=== PATIENT | female | born 1990 | race Two or more races ===

== ENCOUNTER 2017-04-29 05:11 | Inpatient (IN) | payer BC, SELFPAY ==
[2017-04-29] MEDS ORDERED: Sodium Chloride 0.9% 10 ML Syringe FLUSH PRN (06:00)
[2017-04-29] MEDS ORDERED: Lidocaine 1% 50 ML MDV INJECT PRN (06:00)
[2017-04-29] MEDS ORDERED: Sodium Chloride 0.9% 2.5 ML Syringe FLUSH PRN (06:00)
[2017-04-29] MEDS ORDERED: Methylergonovine 0.2 MG/1 ML Amp IM PRN (06:00)
[2017-04-29] MEDS ORDERED: Nalbuphine 10 MG/1 ML Vial IVPUSH PRN (06:00)
[2017-04-29] MEDS ORDERED: Carboprost Tromethamine 250 MCG/1 ML Amp IM PRN (06:00)
[2017-04-29] MEDS ORDERED: Oxytocin/0.9 % Sodium Chloride 30 UNIT/500 ML BAG IV SCH ×2 (06:00→12:15)
[2017-04-29] MEDS ORDERED: Water For Irrigation,Sterile 1,000 ML Container IRR PRN (06:00)
[2017-04-29] MEDS ORDERED: Misoprostol 200 MCG Tab PO PRN (06:00)
[2017-04-29] MEDS ORDERED: Butorphanol 1 MG/ML SDV IVPUSH PRN (06:00)
[2017-04-29] MEDS: Lactated Ringers 1,000 ML IV SCH ×3 (06:35→07:50)
[2017-04-29] MEDS ORDERED: Ropivacaine HCl/PF 100 ML ONE (07:15)
[2017-04-29] MEDS ORDERED: fentaNYL 100 MCG/2 ML SDV ONE (07:15)
--- NOTE | 2017-04-29 07:23 | PCM.LDHP ---
L&D History of Present Illness - General Date of Service: 04/29/17 Admit Problem/Dx: Patient Status Order with Admit Dx/Problem 04/29/17 06:00 Patient Status [ADT] Routine Admission Diagnosis/Problem Admission Diagnosis/Problem 04/29/17 07:21 26yo EDC at 38 1/7wks. Comes to L&D with ROM clear and contractions. O+, RI, GBS neg. Source of Information: Patient History Limitations: Reports: No Limitations - History of Present Illness Improves with: Reports: None Worsens with: Reports: None Associated Symptoms: Reports: N - Related Data Allergies/Adverse Reactions: Allergies Allergy/AdvReac Type Severity Reaction Status Date / Time No Known Allergies Allergy Verified 04/29/17 06:00 H&P Review of Systems - Review of Systems: Review Of Systems: See Below General: Reports: No Symptoms HEENT: Reports: No Symptoms Pulmonary: Reports: No Symptoms Cardiovascular: Reports: No Symptoms Gastrointestinal: Reports: No Symptoms Genitourinary: Reports: No Symptoms Musculoskeletal: Reports: No Symptoms Skin: Reports: No Symptoms Psychiatric: Reports: No Symptoms Neurological: Reports: No Symptoms Hematologic/Lymphatic: Reports: No Symptoms Immunologic: Reports: No Symptoms L&D Exam - Exam Exam: See Below - Vital Signs Weight: 103.419 kg - OB Specific Contraction Intensity: Moderate to Strong Movement: Active Heart Tones: Present Heart Tones per Min: 120 Heart Rate (FHR) Variability: Moderate (6-25 bmp) Presentation: Vertex - Patel Score Patel Score Cervix Position: Anterior Patel Score Consistency: Soft Patel Score Effacement: >80% Patel Score Dilation: 3-4 cm Patel Score Infant's Station: -2 Patel Score Total: 10 - Exam General: Alert, Oriented, Cooperative Lungs: Clear to Auscultation, Normal Respiratory Effort Cardiovascular: Regular Rate, Regular Rhythm GI/Abdominal Exam: Soft, Non-Tender Rectal Exam: Deferred Genitourinary: Normal external exam, Cervical dilitation, Cervical fluid Back Exam: Full Range of Motion Extremities: Normal Range of Motion, Non-Tender, No Pedal Edema, Normal Capillary Refill Skin: Warm, Dry, Intact Neurological: Reflexes Equal Bilateral, Normal Speech, Normal Tone Psychiatric: Alert, Normal Affect, Normal Mood - Patient Data Lab Results Last 24 hrs: Laboratory Results - last 24 hr 12/01/17 Range/Units 06:29 WBC 11.41 H (4.0-11.0) K/uL RBC 4.63 (4.30-5.90) M/uL Hgb 13.0 (12.0-16.0) g/dL Hct 39.1 (36.0-46.0) % MCV 84.4 (80.0-98.0) fL MCH 28.1 (27.0-32.0) pg MCHC 33.2 (31.0-37.0) g/dL RDW Std Deviation 42.1 (28.0-62.0) fl RDW Coeff of Tania 14 (11.0-15.0) % Plt Count 237 (150-400) K/uL MPV 10.90 (7.40-12.00) fL Nucleated RBC % 0.0 /100WBC Nucleated RBCs # 0 K/uL Result Diagrams: 04/29/17 06:29 - Problem List (1) Supervision of normal IUP (intrauterine ) in multigravida SNOMED Code(s): 311802792, 979905457 ICD Code: Z34.80 - ENCOUNTER FOR SUPRVSN OF NORMAL , UNSP TRIMESTER Status: Acute Current Visit: Yes Qualifiers: Trimester: third trimester Qualified Code(s): Z34.83 - Encounter for supervision of other normal , third trimester Problem List Initiated/Reviewed/Updated: Yes Orders Last 24hrs: Active Orders 24 hr Category Date Time Status Patient Status [ADT] Routine ADT 04/29/17 06:00 Active Heart Tones [RC] CONTINUOUS Care 04/29/17 06:00 Active Non Stress Test [RC] PER UNIT ROUTINE Care 04/29/17 06:00 Active May Shower [RC] ASDIRECTED Care 04/29/17 06:00 Active Notify Provider [RC] PRN Care 04/29/17 06:00 Active Up ad Shanon [RC] ASDIRECTED Care 04/29/17 06:00 Active Vaginal Exam [RC] PRN Care 04/29/17 06:00 Active Vital Signs [RC] PER UNIT ROUTINE Care 04/29/17 06:00 Active TYPE AND SCREEN [BBK] Routine Lab 04/29/17 06:29 Received Butorphanol [Stadol] Med 04/29/17 06:00 Active 1 mg IVPUSH Q1H PRN Carboprost Tromethamine [Hemabate DS] Med 04/29/17 06:00 Active 250 mcg IM ASDIRECTED PRN Lactated Ringers [Ringers, Lactated] 1,000 ml Med 04/29/17 06:00 Active IV ASDIRECTED Lidocaine 1% [Xylocaine 1%] Med 04/29/17 06:00 Active 50 ml INJECT .ONCE PRN Methylergonovine [Methergine] Med 04/29/17 06:00 Active 0.2 mg IM ASDIRECTED PRN Misoprostol [Cytotec] Med 04/29/17 06:00 Active 200 mcg PO .ONCE PRN Nalbuphine [Nubain] Med 04/29/17 06:00 Active 10 mg IVPUSH Q1H PRN Oxytocin/0.9 % Sodium Chloride [Oxytocin 30 Unit/500 ML Med 04/29/17 06:00 Active -NS] 30 unit in 500 ml IV TITRATE Sodium Chloride 0.9% [Saline Flush] Med 04/29/17 06:00 Active 10 ml FLUSH ASDIRECTED PRN Sodium Chloride 0.9% [Saline Flush] Med 04/29/17 06:00 Active 2.5 ml FLUSH ASDIRECTED PRN Water For Irrigation,Sterile [Sterile Water for Med 04/29/17 06:00 Active Irrigation] 1,000 ml IRR ASDIRECTED PRN Scalp Electrode [WOMSER] Per Unit Routine Oth 04/29/17 06:00 Ordered Peripheral IV Insertion Adult [OM.PC] Routine Oth 04/29/17 06:00 Ordered Resuscitation Status Routine Resus Stat 04/29/17 06:00 Ordered Medication Orders Butorphanol Tartrate (Stadol) 1 mg IVPUSH Q1H PRN PRN Reason: Pain Carboprost Tromethamine (Hemabate Ds) 250 mcg IM ASDIRECTED PRN PRN Reason: Post Hemorrhage Lactated Ringer's (Ringers, Lactated) 1,000 mls @ 150 mls/hr IV ASDIRECTED KENDELL Last Admin: 04/29/17 07:11 Dose: 999 mls/hr Infusion: 04/29/17 07:11 Dose: 150 mls/hr Admin: 04/29/17 06:35 Dose: 150 mls/hr Oxytocin/Sodium Chloride (Oxytocin 30 Unit/500 Ml-Ns) 30 unit in 500 mls @ 999 mls/hr IV TITRATE KENDELL Lidocaine HCl (Xylocaine 1%) 50 ml INJECT .ONCE PRN PRN Reason: Laceration repair Methylergonovine Maleate (Methergine) 0.2 mg IM ASDIRECTED PRN PRN Reason: Post Hemorrhage Misoprostol (Cytotec) 200 mcg PO .ONCE PRN PRN Reason: Post Hemorrhage Nalbuphine HCl (Nubain) 10 mg IVPUSH Q1H PRN PRN Reason: Pain (severe 7-10) Sodium Chloride (Saline Flush) 10 ml FLUSH ASDIRECTED PRN PRN Reason: Keep Vein Open Sodium Chloride (Saline Flush) 2.5 ml FLUSH ASDIRECTED PRN PRN Reason: Keep Vein Open Sterile Water (Sterile Water For Irrigation) 1,000 ml IRR ASDIRECTED PRN PRN Reason: delivery Assessment/Plan Comment:: Labor A: 26yo EDC 12 at 38 1/7wks. Comes to L&D with ROM clear and contractions. O+, RI, GBS neg. P: Admit to L&D, epidrual prn, anticipate . Dr Alexis updated on pt status.
--- NOTE | 2017-04-29 07:55 | PCM.PREANE ---
Preanesthetic Assessment - Anesthesia/Transfusion/Family Hx Anesthesia History: Prior Anesthesia Without Reaction Family History of Anesthesia Reaction: No Intubation History: Unknown - Review of Systems General: No Symptoms Pulmonary: No Symptoms Cardiovascular: No Symptoms Gastrointestinal: No Symptoms Neurological: No Symptoms Other: Reports: None - Physical Assessment NPO Status Date: 04/29/17 NPO Status Time: 07:54 Blood Pressure: 129/82 Height: 5 ft 6 in Weight: 228 lb ASA Class: 2 Mental Status: Alert & Oriented x3 Airway Class: Mallampati = 2 Dentition: Reports: Normal Dentition Thyro-Mental Finger Breadths: 3 Mouth Opening Finger Breadths: 3 ROM/Head Extension: Full Lungs: Clear to Auscultation, Normal Respiratory Effort Cardiovascular: Regular Rate, Regular Rhythm - Lab Values: Laboratory Last Values WBC 11.41 K/uL (4.0-11.0) H 04/29/17 06:29 RBC 4.63 M/uL (4.30-5.90) 04/29/17 06:29 Hgb 13.0 g/dL (12.0-16.0) 04/29/17 06:29 Hct 39.1 % (36.0-46.0) 04/29/17 06:29 MCV 84.4 fL (80.0-98.0) 04/29/17 06:29 MCH 28.1 pg (27.0-32.0) 04/29/17 06:29 MCHC 33.2 g/dL (31.0-37.0) 04/29/17 06:29 RDW Std Deviation 42.1 fl (28.0-62.0) 04/29/17 06:29 RDW Coeff of Tania 14 % (11.0-15.0) 04/29/17 06:29 Plt Count 237 K/uL (150-400) 04/29/17 06:29 MPV 10.90 fL (7.40-12.00) 04/29/17 06:29 Nucleated RBC % 0.0 /100WBC 04/29/17 06:29 Nucleated RBCs # 0 K/uL 04/29/17 06:29 Blood Type O POSITIVE 04/29/17 06:29 Antibody Screen NEGATIVE 04/29/17 06:29 - Allergies Allergies/Adverse Reactions: Allergies Allergy/AdvReac Type Severity Reaction Status Date / Time No Known Allergies Allergy Verified 04/29/17 06:00 - Blood Blood Available: No Product(s) Available: None - Acknowledgements Anesthesia Type Planned: Epidural Pt an Appropriate Candidate for the Planned Anesthesia: Yes Alternatives and Risks of Anesthesia Discussed w Pt/Guardian: Yes Pt/Guardian Understands and Agrees with Anesthesia Plan: Yes PreAnesthesia Questionnaire Endocrine/Metabolic History: Reports: Obesity/BMI 30+ - CURRENT (IN HOUSE) MEDS Current Meds: Current Medications Butorphanol Tartrate (Stadol) 1 mg IVPUSH Q1H PRN PRN Reason: Pain Carboprost Tromethamine (Hemabate Ds) 250 mcg IM ASDIRECTED PRN PRN Reason: Post Hemorrhage Lactated Ringer's (Ringers, Lactated) 1,000 mls @ 150 mls/hr IV ASDIRECTED KENDELL Last Admin: 04/29/17 07:50 Dose: 150 mls/hr Oxytocin/Sodium Chloride (Oxytocin 30 Unit/500 Ml-Ns) 30 unit in 500 mls @ 999 mls/hr IV TITRATE [facility] Lidocaine HCl (Xylocaine 1%) 50 ml INJECT .ONCE PRN PRN Reason: Laceration repair Methylergonovine Maleate (Methergine) 0.2 mg IM ASDIRECTED PRN PRN Reason: Post Hemorrhage Misoprostol (Cytotec) 200 mcg PO .ONCE PRN PRN Reason: Post Hemorrhage Nalbuphine HCl (Nubain) 10 mg IVPUSH Q1H PRN PRN Reason: Pain (severe 7-10) Sodium Chloride (Saline Flush) 10 ml FLUSH ASDIRECTED PRN PRN Reason: Keep Vein Open Sodium Chloride (Saline Flush) 2.5 ml FLUSH ASDIRECTED PRN PRN Reason: Keep Vein Open Sterile Water (Sterile Water For Irrigation) 1,000 ml IRR ASDIRECTED PRN PRN Reason: delivery Discontinued Medications Fentanyl (Sublimaze) Confirm Administered Dose 100 mcg .ROUTE .STK-MED ONE Stop: 04/29/17 07:16 Ropivacaine (Naropin 0.2%) Confirm Administered Dose 100 mls @ as directed .ROUTE .STK-MED ONE Stop: 04/29/17 07:16
[2017-04-29] MEDS ORDERED: Terbutaline 1 MG/ML SDV SUBCUT PRN (12:13)
[2017-04-29] MEDS ORDERED: oxyCODONE 5 MG Tab PO PRN (13:58)
[2017-04-29] MEDS ORDERED: Lanolin 100% Cream 7 GM Tube TOP PRN (13:58)
[2017-04-29] MEDS ORDERED: Acetaminophen 500 MG Tab PO PRN ×2 (13:58)
[2017-04-29] MEDS ORDERED: Benzocaine/Menthol 20%-0.5% Spray 78 GM Cannister TOP PRN (13:58)
[2017-04-29] MEDS ORDERED: Witch Hazel Medicated Pads 40/Jar TOP PRN (13:58)
[2017-04-29] MEDS ORDERED: Docusate Sodium 100 MG Cap PO PRN (13:58)
[2017-04-29] MEDS ORDERED: Ibuprofen 400 MG Tab PO PRN (13:58)
[2017-04-29] MEDS ORDERED: Bisacodyl 10 MG Supp RECTAL PRN (13:58)
--- NOTE | 2017-04-29 14:05 | PCM.DEL ---
L & D Note - General Info Date of Service: 04/29/17 Mother's Due Date: 05/12/17 - Delivery Note Labor: Spontaneous Delivery Outcome: Livebirth Infant Delivery Method: Spontaneous Vaginal Delivery-Single Delivery Mode: Spontaneous Presentation: Vertex Nuchal Cord: None Anesthesia Type: Epidural Amniotic Fluid Description: Clear Episiotomy Type: None Laceration: None Placenta: Intact, Spontaneous Cord: 3 Vessels Estimated Blood Loss: 100 Resuscitation Needed: No Score 1 min: 8 Score 5 min: 9 Second Stage Interventions: Reports: Pushing Effectively Delivery Comments (Free Text/Narrative):: of viable male over intact perineum By CNFrancisca and Dr Velázquez Resident. Head delivered with good pushing and then shoulders and body followed easily. Infant to mothers abd for eval by RN. Delayed cord clamping. Pitocin to IVF. Cord clamped x2 and cut. Cord blood collected. Placenta delivered grossly intact. Inspection noted intact perineum. EBL: 100, APGARS 8/9, Wt: 7lb 13oz. Mother and baby left in stable condition for recovery bonding well. - General Info Date of Service: 04/29/17 Admission Dx/Problem (Free Text): Patient Status Order with Admit Dx/Problem 04/29/17 06:00 Patient Status [ADT] Routine Admission Diagnosis/Problem Admission Diagnosis/Problem 04/29/17 07:21 26yo EDC at 38 1/7wks. Comes to L&D with ROM clear and contractions. O+, RI, GBS neg. Functional Status: Reports: Pain Controlled - Review of Systems General: Reports: No Symptoms HEENT: Reports: No Symptoms Pulmonary: Reports: No Symptoms Cardiovascular: Reports: No Symptoms Gastrointestinal: Reports: No Symptoms Genitourinary: Reports: No Symptoms Musculoskeletal: Reports: No Symptoms Skin: Reports: No Symptoms Neurological: Reports: No Symptoms Psychiatric: Reports: No Symptoms - Patient Data Vitals - Most Recent: Last Vital Signs Temp Pulse Resp BP 129/82 04/29/17 07:54 Pulse Ox Weight - Most Recent: 103.419 kg Lab Results Last 24 Hours: Laboratory Results - last 24 hr 04/29/17 04/29/17 Range/Units 06:29 06:29 WBC 11.41 H (4.0-11.0) K/uL RBC 4.63 (4.30-5.90) M/uL Hgb 13.0 (12.0-16.0) g/dL Hct 39.1 (36.0-46.0) % MCV 84.4 (80.0-98.0) fL MCH 28.1 (27.0-32.0) pg MCHC 33.2 (31.0-37.0) g/dL RDW Std Deviation 42.1 (28.0-62.0) fl RDW Coeff of Tania 14 (11.0-15.0) % Plt Count 237 (150-400) K/uL MPV 10.90 (7.40-12.00) fL Nucleated RBC % 0.0 /100WBC Nucleated RBCs # 0 K/uL Blood Type O POSITIVE Antibody Screen NEGATIVE Med Orders - Current: Current Medications Acetaminophen (Tylenol Extra Strength) 500 mg PO Q4H PRN PRN Reason: Pain Acetaminophen (Tylenol Extra Strength) 1,000 mg PO Q4H PRN PRN Reason: Pain Benzocaine/Menthol (Dermoplast Pain Relief 20%-0.5% [place]) 78 gm TOP ASDIRECTED PRN PRN Reason: Perineal Comfort Measure Bisacodyl (Dulcolax) 10 mg RECTAL .ONCE PRN PRN Reason: Constipation Docusate Sodium (Colace) 100 mg PO BID PRN PRN Reason: Constipation Emollient Ointment (Lansinoh Hpa) 0 gm TOP ASDIRECTED PRN PRN Reason: Sore Nipples Ibuprofen (Motrin) 400 mg PO Q4H PRN PRN Reason: Pain Ibuprofen (Motrin) 800 mg PO Q6H PRN PRN Reason: Pain Oxycodone HCl (Oxycodone) 5 mg PO Q2H PRN PRN Reason: Pain Witch Christina (Tucks) 1 pad TOP ASDIRECTED PRN PRN Reason: comfort care Discontinued Medications Butorphanol Tartrate (Stadol) 1 mg IVPUSH Q1H PRN PRN Reason: Pain Carboprost Tromethamine (Hemabate Ds) 250 mcg IM ASDIRECTED PRN PRN Reason: Post Hemorrhage Fentanyl (Sublimaze) Confirm Administered Dose 100 mcg .ROUTE .STK-MED ONE Stop: 04/29/17 07:16 Lactated Ringer's (Ringers, Lactated) 1,000 mls @ 150 mls/hr IV ASDIRECTED KENDELL Last Admin: 04/29/17 07:50 Dose: 150 mls/hr Oxytocin/Sodium Chloride (Oxytocin 30 Unit/500 Ml-Ns) 30 unit in 500 mls @ 999 mls/hr IV TITRATE KENDELL Ropivacaine (Naropin 0.2%) Confirm Administered Dose 100 mls @ as directed .ROUTE .[facility]-MED ONE Stop: 04/29/17 07:16 Oxytocin/Sodium Chloride (Oxytocin 30 Unit/500 Ml-Ns) 30 unit in 500 mls @ 2 mls/hr IV TITRATE KENDELL; 2 MUNITS/MIN PRN Reason: Protocol Lidocaine HCl (Xylocaine 1%) 50 ml INJECT .ONCE PRN PRN Reason: Laceration repair Methylergonovine Maleate (Methergine) 0.2 mg IM ASDIRECTED PRN PRN Reason: Post Hemorrhage Misoprostol (Cytotec) 200 mcg PO .ONCE PRN PRN Reason: Post Hemorrhage Nalbuphine HCl (Nubain) 10 mg IVPUSH Q1H PRN PRN Reason: Pain (severe 7-10) Sodium Chloride (Saline Flush) 10 ml FLUSH ASDIRECTED PRN PRN Reason: Keep Vein Open Sodium Chloride (Saline Flush) 2.5 ml FLUSH ASDIRECTED PRN PRN Reason: Keep Vein Open Sterile Water (Sterile Water For Irrigation) 1,000 ml IRR ASDIRECTED PRN PRN Reason: delivery Terbutaline Sulfate (Brethine) 0.25 mg SUBCUT ASDIRECTED PRN PRN Reason: Tacysystole - Exam General: Alert, Oriented, Cooperative, No Acute Distress Lungs: Normal Respiratory Effort GI/Abdominal Exam: Soft, Non-Tender (Female) Exam: Normal External Exam, Normal Bimanual Exam, Vaginal Bleeding Back Exam: Full Range of Motion Extremities: Normal Range of Motion, Non-Tender, No Pedal Edema, Normal Capillary Refill Skin: Warm, Dry, Intact Wound/Incisions: Healing Well Neurological: No New Focal Deficit, Normal Speech, Normal Tone Psy/Mental Status: Alert, Normal Affect, Normal Mood - Problem List & Annotations (1) Supervision of normal IUP (intrauterine ) in multigravida SNOMED Code(s): 980101229, 088928851 Code(s): Z34.80 - ENCOUNTER FOR SUPRVSN OF NORMAL , UNSP TRIMESTER Status: Acute Current Visit: Yes Qualifiers: Trimester: third trimester Qualified Code(s): Z34.83 - Encounter for supervision of other normal , third trimester (2) (normal spontaneous vaginal delivery) SNOMED Code(s): 08052852 Code(s): O80 - ENCOUNTER FOR FULL-TERM UNCOMPLICATED DELIVERY Status: Acute Priority: High Current Visit: Yes - Problem List Review Problem List Initiated/Reviewed/Updated: Yes - My Orders Last 24 Hours: My Active Orders 04/29/17 12:13 Oxygen Therapy [RC] ASDIRECTED Vaginal Exam [RC] PRN Vital Signs [RC] PER UNIT ROUTINE 04/29/17 13:58 May Shower [RC] ASDIRECTED Up ad Shanon [RC] ASDIRECTED Vital Signs [RC] PER UNIT ROUTINE Acetaminophen [Tylenol Extra Strength] 1,000 mg PO Q4H PRN Acetaminophen [Tylenol Extra Strength] 500 mg PO Q4H PRN Benzocaine/Menthol [Dermoplast Pain Relief 20%-0.5% [place]] 78 gm TOP ASDIRECTED PRN Bisacodyl [Dulcolax] 10 mg RECTAL .ONCE PRN Docusate Sodium [Colace] 100 mg PO BID PRN Ibuprofen [Motrin] 400 mg PO Q4H PRN Ibuprofen [Motrin] 800 mg PO Q6H PRN Lanolin [Lansinoh HPA] See Dose Instructions TOP ASDIRECTED PRN Witch Christina [Tucks] 1 pad TOP ASDIRECTED PRN oxyCODONE 5 mg PO Q2H PRN Assess Lochia [WOMSER] Per Unit Routine Assess Uterine Involution [WOMSER] Per Unit Routine Peripheral IV Discontinue [OM.PC] Routine Resuscitation Status Routine 04/29/17 13:59 Patient Status [ADT] Routine 04/29/17 Dinner Regular Diet [DIET] - Assessment Assessment:: Delivery A: male. APGARS 8/9, WT 7lb 13oz, EBL 100cc. Bonding well - Plan Plan:: Labor A: 26yo EDC 12 at 38 1/7wks. Comes to L&D with ROM clear and contractions. O+, RI, GBS neg. P: Admit to L&D, epidrual prn, anticipate . Dr Alexis updated on pt status. Delivery P: routine pp plan of care
[2017-04-29] MEDS: Ibuprofen 800 MG Tab PO PRN (23:46)
[2017-04-30] MEDS: Ibuprofen 800 MG Tab PO PRN (07:15)
--- NOTE | 2017-04-30 10:31 | PCM.PNPP ---
- General Info Date of Service: 04/30/17 Functional Status: Reports: Pain Controlled - Review of Systems General: Reports: No Symptoms HEENT: Reports: No Symptoms Pulmonary: Reports: No Symptoms Cardiovascular: Reports: No Symptoms Gastrointestinal: Reports: No Symptoms Genitourinary: Reports: No Symptoms Musculoskeletal: Reports: No Symptoms Skin: Reports: No Symptoms Neurological: Reports: No Symptoms Psychiatric: Reports: No Symptoms - General Info Date of Service: 04/30/17 - Patient Data Vital Signs - Most Recent: Last Vital Signs Temp 36.7 C 04/30/17 09:09 Pulse 80 04/30/17 09:09 Resp 16 04/30/17 09:09 BP 118/71 04/30/17 09:09 Pulse Ox 96 04/30/17 09:09 Weight - Most Recent: 103.419 kg Med Orders - Current: Current Medications Acetaminophen (Tylenol Extra Strength) 500 mg PO Q4H PRN PRN Reason: Pain Acetaminophen (Tylenol Extra Strength) 1,000 mg PO Q4H PRN PRN Reason: Pain Last Admin: 04/29/17 18:14 Dose: 1,000 mg Benzocaine/Menthol (Dermoplast Pain Relief 20%-0.5% [place]) 78 gm TOP ASDIRECTED PRN PRN Reason: Perineal Comfort Measure Bisacodyl (Dulcolax) 10 mg RECTAL .ONCE PRN PRN Reason: Constipation Docusate Sodium (Colace) 100 mg PO BID PRN PRN Reason: Constipation Emollient Ointment (Lansinoh Hpa) 0 gm TOP ASDIRECTED PRN PRN Reason: Sore Nipples Ibuprofen (Motrin) 400 mg PO Q4H PRN PRN Reason: Pain Ibuprofen (Motrin) 800 mg PO Q6H PRN PRN Reason: Pain Last Admin: 04/30/17 07:15 Dose: 800 mg Oxycodone HCl (Oxycodone) 5 mg PO Q2H PRN PRN Reason: Pain Witch Christina (Tucks) 1 pad TOP ASDIRECTED PRN PRN Reason: comfort care Discontinued Medications Butorphanol Tartrate (Stadol) 1 mg IVPUSH Q1H PRN PRN Reason: Pain Carboprost Tromethamine (Hemabate Ds) 250 mcg IM ASDIRECTED PRN PRN Reason: Post Hemorrhage Fentanyl (Sublimaze) Confirm Administered Dose 100 mcg .ROUTE .STK-MED ONE Stop: 04/29/17 07:16 Lactated Ringer's (Ringers, Lactated) 1,000 mls @ 150 mls/hr IV ASDIRECTED KENDELL Last Admin: 04/29/17 07:50 Dose: 150 mls/hr Oxytocin/Sodium Chloride (Oxytocin 30 Unit/500 Ml-Ns) 30 unit in 500 mls @ 999 mls/hr IV TITRATE KENDELL Ropivacaine (Naropin 0.2%) Confirm Administered Dose 100 mls @ as directed .ROUTE .STK-MED ONE Stop: 04/29/17 07:16 Oxytocin/Sodium Chloride (Oxytocin 30 Unit/500 Ml-Ns) 30 unit in 500 mls @ 2 mls/hr IV TITRATE KENDELL; 2 MUNITS/MIN PRN Reason: Protocol Lidocaine HCl (Xylocaine 1%) 50 ml INJECT .ONCE PRN PRN Reason: Laceration repair Methylergonovine Maleate (Methergine) 0.2 mg IM ASDIRECTED PRN PRN Reason: Post Hemorrhage Misoprostol (Cytotec) 200 mcg PO .ONCE PRN PRN Reason: Post Hemorrhage Nalbuphine HCl (Nubain) 10 mg IVPUSH Q1H PRN PRN Reason: Pain (severe 7-10) Sodium Chloride (Saline Flush) 10 ml FLUSH ASDIRECTED PRN PRN Reason: Keep Vein Open Sodium Chloride (Saline Flush) 2.5 ml FLUSH ASDIRECTED PRN PRN Reason: Keep Vein Open Sterile Water (Sterile Water For Irrigation) 1,000 ml IRR ASDIRECTED PRN PRN Reason: delivery Terbutaline Sulfate (Brethine) 0.25 mg SUBCUT ASDIRECTED PRN PRN Reason: Tacysystole - Interaction Disposition, : [place] in Room with Family Interaction: Holding Infant Infant Feeding: Attempted ; Nursed Fair/Poor Support Person: Significant Other - Recovery Exam Fundal Tone: Firm Fundal Level: 1 Fingerbreadths Below Umbilicus Fundal Placement: Midline Lochia Amount: Small Lochia Color: Rubra/Red Perineum Description: Intact, Minimal Bruising/Swelling Episiotomy/Laceration: None Bladder Status: Voiding Urinary Elimination: Voided - Exam General: Alert, Oriented HEENT: Pupils Equal Neck: Supple Lungs: Clear to Auscultation, Normal Respiratory Effort Cardiovascular: Regular Rate, Regular Rhythm GI/Abdominal Exam: Normal Bowel Sounds, Soft, Non-Tender, No Organomegaly, No Distention, No Abnormal Bruit, No Mass, Pelvis Stable Extremities: Normal Inspection, Normal Range of Motion, Non-Tender, No Pedal Edema, Normal Capillary Refill Skin: Warm, Dry, Intact Wound/Incisions: Healing Well Neurological: No New Focal Deficit Psy/Mental Status: Alert, Normal Affect, Normal Mood - Problem List Review Problem List Initiated/Reviewed/Updated: Yes - Assessment Assessment:: Delivery A: male. APGARS 8/9, WT 7lb 13oz, EBL 100cc. Bonding well - Plan Plan:: Labor A: 26yo EDC 12 at 38 1/7wks. Comes to L&D with ROM clear and contractions. O+, RI, GBS neg. P: Admit to L&D, epidrual prn, anticipate . Dr Alexis updated on pt status. Delivery P: routine pp plan of care
--- NOTE | 2017-04-30 10:35 | PCM.DCSUM1 ---
Discharge Summary - Discharge Data Discharge Date: 04/30/17 Discharge Disposition: Home, Self-Care 01 Condition: Good - Patient Instructions Diet: Usual Diet as Tolerated Driving: Do Not Drive Showering/Bathing: September Shower Notify Provider of: Fever, Increased Pain - Discharge Plan Referrals: [facility] [Outside] Brian Alexis MD [Physician] - 06/10/17 1:30 pm - General Info Date of Service: 04/30/17 Functional Status: Reports: Pain Controlled - Review of Systems General: Reports: No Symptoms HEENT: Reports: No Symptoms Pulmonary: Reports: No Symptoms Cardiovascular: Reports: No Symptoms Gastrointestinal: Reports: No Symptoms Genitourinary: Reports: No Symptoms Musculoskeletal: Reports: No Symptoms Skin: Reports: No Symptoms Neurological: Reports: No Symptoms Psychiatric: Reports: No Symptoms - Patient Data Vitals - Most Recent: Last Vital Signs Temp 36.7 C 04/30/17 09:09 Pulse 80 04/30/17 09:09 Resp 16 04/30/17 09:09 BP 118/71 04/30/17 09:09 Pulse Ox 96 04/30/17 09:09 Weight - Most Recent: 103.419 kg Med Orders - Current: Current Medications Acetaminophen (Tylenol Extra Strength) 500 mg PO Q4H PRN PRN Reason: Pain Acetaminophen (Tylenol Extra Strength) 1,000 mg PO Q4H PRN PRN Reason: Pain Last Admin: 04/29/17 18:14 Dose: 1,000 mg Benzocaine/Menthol (Dermoplast Pain Relief 20%-0.5% [place]) 78 gm TOP ASDIRECTED PRN PRN Reason: Perineal Comfort Measure Bisacodyl (Dulcolax) 10 mg RECTAL .ONCE PRN PRN Reason: Constipation Docusate Sodium (Colace) 100 mg PO BID PRN PRN Reason: Constipation Emollient Ointment (Lansinoh Hpa) 0 gm TOP ASDIRECTED PRN PRN Reason: Sore Nipples Ibuprofen (Motrin) 400 mg PO Q4H PRN PRN Reason: Pain Ibuprofen (Motrin) 800 mg PO Q6H PRN PRN Reason: Pain Last Admin: 04/30/17 07:15 Dose: 800 mg Oxycodone HCl (Oxycodone) 5 mg PO Q2H PRN PRN Reason: Pain Witch Christina (Tucks) 1 pad TOP ASDIRECTED PRN PRN Reason: comfort care Discontinued Medications Butorphanol Tartrate (Stadol) 1 mg IVPUSH Q1H PRN PRN Reason: Pain Carboprost Tromethamine (Hemabate Ds) 250 mcg IM ASDIRECTED PRN PRN Reason: Post Hemorrhage Fentanyl (Sublimaze) Confirm Administered Dose 100 mcg .ROUTE .STK-MED ONE Stop: 04/29/17 07:16 Lactated Ringer's (Ringers, Lactated) 1,000 mls @ 150 mls/hr IV ASDIRECTED KENDELL Last Admin: 04/29/17 07:50 Dose: 150 mls/hr Oxytocin/Sodium Chloride (Oxytocin 30 Unit/500 Ml-Ns) 30 unit in 500 mls @ 999 mls/hr IV TITRATE KENDELL Ropivacaine (Naropin 0.2%) Confirm Administered Dose 100 mls @ as directed .ROUTE .[facility] ONE Stop: 04/29/17 07:16 Oxytocin/Sodium Chloride (Oxytocin 30 Unit/500 Ml-Ns) 30 unit in 500 mls @ 2 mls/hr IV TITRATE KENDELL; 2 MUNITS/MIN PRN Reason: Protocol Lidocaine HCl (Xylocaine 1%) 50 ml INJECT .ONCE PRN PRN Reason: Laceration repair Methylergonovine Maleate (Methergine) 0.2 mg IM ASDIRECTED PRN PRN Reason: Post Hemorrhage Misoprostol (Cytotec) 200 mcg PO .ONCE PRN PRN Reason: Post Hemorrhage Nalbuphine HCl (Nubain) 10 mg IVPUSH Q1H PRN PRN Reason: Pain (severe 7-10) Sodium Chloride (Saline Flush) 10 ml FLUSH ASDIRECTED PRN PRN Reason: Keep Vein Open Sodium Chloride (Saline Flush) 2.5 ml FLUSH ASDIRECTED PRN PRN Reason: Keep Vein Open Sterile Water (Sterile Water For Irrigation) 1,000 ml IRR ASDIRECTED PRN PRN Reason: delivery Terbutaline Sulfate (Brethine) 0.25 mg SUBCUT ASDIRECTED PRN PRN Reason: Tacysystole - Exam General: Reports: Alert, Oriented HEENT: Reports: Pupils Equal, Pupils Reactive, EOMI, Mucous Membr. Moist/[place] Neck: Reports: Supple Lungs: Reports: Clear to Auscultation, Normal Respiratory Effort Cardiovascular: Reports: Regular Rate, Regular Rhythm GI/Abdominal Exam: Normal Bowel Sounds, Soft, Non-Tender, No Organomegaly, No Distention, No Abnormal Bruit, No Mass, Pelvis Stable (Female) Exam: Normal External Exam, Normal Speculum Exam, Normal Bimanual Exam Rectal (Female) Exam: Normal Exam, Normal Rectal Tone Back Exam: Reports: Normal Inspection, Full Range of Motion Extremities: Normal Inspection, Normal Range of Motion, Non-Tender, No Pedal Edema, Normal Capillary Refill Skin: Reports: Warm, Dry, Intact Wound/Incisions: Reports: Healing Well Neurological: Reports: No New Focal Deficit Psy/Mental Status: Reports: Alert, Normal Affect, Normal Mood *Q Meaningful Use (DIS) - VTE *Q VTE Criteria *Q: - Stroke *Q Stroke Criteria *Q: - AMI *Q AMI Criteria *Q:
== END 2017-04-30 16:15 | disposition home or self-care (01) | DRG 560 ==
LOC: MW.OBCHECK 05:11 → MW.OB 05:12 → MW.OBCHECK 06:00 → OBSVTOIN 13:45
PROVIDERS: ADMIT Obstetrics & Gynecology; ATTEND Obstetrics & Gynecology
PROC: 10E0XZZ Delivery of Products of Conception, External Approach (ICD-10-PCS; principal; 2017-04-29)
DX: O42.02 Full-term premature rupture of membranes, onset of labor within 24 hours of rupture (principal); Z3A.38 38 weeks gestation of pregnancy; Z37.0 Single live birth
CPT/HCPCS: 36415; 51702; 59025; 59409; 85027; 86850; 86900; 86901; A9270-GY; J2795; J3010; J7120